=== PATIENT | male | born 1960 | race Caucasian/White ===

== ENCOUNTER 2018-05-05 08:41 | Emergency (ER) | payer OTHER ==
--- NOTE | 2018-05-05 10:38 | EDM.PDOC ---
ED HPI GENERAL MEDICAL PROBLEM - General Chief Complaint: General Stated Complaint: Post operative scrotal swelling. Time Seen by Provider: 05/05/18 08:50 Source of Information: Reports: Patient History Limitations: Reports: No Limitations - History of Present Illness INITIAL COMMENTS - FREE TEXT/NARRATIVE: Patient is a 57 year old man who had bilateral inguinal hernia repair on April in [place], [place]. He has a lot of bruising in his abdomen and scrotal area with no pain but his surgeon wanted some lab work and for him to be seen to make sure that he did not have something going on post surgically that may need to be addressed. No fever or chills and no dysuria or other complaints. 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 [Unable to Verify Home Med List] 05/05/18 [History] Past Medical History Cardiovascular History: Reports: Hypertension Gastrointestinal History: Reports: Other (See Below) Other Gastrointestinal History: Hernia - Past Surgical History GI Surgical History: Reports: Hernia, Abdominal Social & Family History - Tobacco Use Smoking Status *Q: Never Smoker - Recreational Drug Use Recreational Drug Use: No ED ROS GENERAL - Review of Systems Review Of Systems: See Below Constitutional: Reports: No Symptoms HEENT: Reports: No Symptoms Respiratory: Reports: No Symptoms Cardiovascular: Reports: No Symptoms Endocrine: Reports: No Symptoms GI/Abdominal: Reports: Other (Bruising post surgery.) : Reports: Other (Scrotal swelling and bruising.) Musculoskeletal: Reports: No Symptoms Skin: Reports: Bruising (Over lower abdomen) Neurological: Reports: No Symptoms Psychiatric: Reports: No Symptoms Hematologic/Lymphatic: Reports: No Symptoms Immunologic: Reports: No Symptoms ED EXAM, GENERAL - Physical Exam Exam: See Below Exam Limited By: No Limitations General Appearance: Alert, WD/WN, No Apparent Distress Eye Exam: Bilateral Eye: EOMI, Normal Fundi, Normal Inspection, PERRL Ears: Normal External Exam, Normal Canal, Hearing Grossly Normal, Normal TMs Ear Exam: Bilateral Ear: Auricle Normal, Canal Normal, TM normal Nose: Normal Inspection, Normal Mucosa, No Blood Throat/Mouth: Normal Inspection, Normal Lips, Normal Teeth, Normal Gums, Normal Oropharynx, Normal Voice, No Airway Compromise Head: Atraumatic, Normocephalic Neck: Normal Inspection, Supple, Non-Tender, Full Range of Motion Respiratory/Chest: No Respiratory Distress, Lungs Clear, Normal Breath Sounds, No Accessory Muscle Use, Chest Non-Tender Cardiovascular: Normal Peripheral Pulses, Regular Rate, Rhythm, No Edema, No Gallop, No JVD, No Murmur, No Rub GI/Abdominal: Soft, Non-Tender, No Organomegaly, Other (Bruising over the lower abdomen post bilateral inguinal hernia repair.) (Male) Exam: Hernia (Status Post bilateral inguinal hernia repair.), Scrotal Swelling (Bilateral hydrocele can be transilluminated.) Extremities: Normal Inspection, Normal Range of Motion, Non-Tender, Normal Capillary Refill, No Pedal Edema Neurological: Alert, Oriented, CN II-XII Intact, Normal Cognition, Normal Gait, Normal Reflexes, No Motor/Sensory Deficits Psychiatric: Normal Affect, Normal Mood Skin Exam: Ecchymosis (Lower abdomen) Lymphatic: No Adenopathy Course - Vital Signs Text/Narrative:: Uneventful ED course. He did very well and was pain free throughout the ED course. He had normal labs and he will follow up early next week with his surgeon in [place], [place]. Recheck here if any problems arise before then. Last Recorded V/S: Last Vital Signs Temp 36.9 C 05/05/18 09:00 Pulse 60 05/05/18 09:00 Resp 18 05/05/18 09:00 BP 127/75 05/05/18 09:00 Pulse Ox 98 05/05/18 09:00 - Orders/Labs/Meds Labs: Laboratory Tests 05/05/18 05/05/18 05/05/18 Range/Units 09:45 09:45 09:45 WBC 9.7 (4.0-11.0) K/uL RBC 3.97 L (4.50-6.50) M/uL Hgb 12.8 L (13.0-18.0) g/dL Hct 37.7 L (40.0-54.0) % MCV 95 (76-96) fL MCH 32.2 H (27.0-32.0) pg MCHC 34.0 (31.0-35.0) g/dL RDW 11.9 (11.0-16.0) % Plt Count 256 (150-400) K/uL MPV 9.7 (6.0-10.0) fL Neut % (Auto) 66.4 (45.0-70.0) % Lymph % (Auto) 18.9 L (20.0-40.0) % Swain % (Auto) 11.5 H (3.0-10.0) % Eos % (Auto) 2.9 (1.0-5.0) % Baso % (Auto) 0.3 (0.0-0.5) % Neut # (Auto) 6.44 (2.00-7.50) K/uL Lymph # (Auto) 1.83 (1.50-4.00) K/uL Swain # (Auto) 1.12 H (0.20-0.80) K/uL Eos # (Auto) 0.28 (0.04-0.40) K/uL Baso # (Auto) 0.03 (0.02-0.10) K/uL PT 9.4 (9.0-11.5) sec INR 0.9 L (1.0-3.5) APTT 23.9 L (24.4-33.2) SECONDS Sodium 141 (136-145) mmol/L Potassium 4.5 (3.5-5.1) mmol/L Chloride 107 (98-107) mmol/L Carbon Dioxide 28.0 (21.0-32.0) mmol/L Anion Gap 10.5 (5.0-15.0) mmol/L BUN 21 (8-26) mg/dL Creatinine 1.14 (0.70-1.30) mg/dL Est Cr Clr Drug Dosing TNP Estimated GFR (MDRD) > 60 (>60) MLS/MIN BUN/Creatinine Ratio 18.4 (6-25) Glucose 100 (74-100) mg/dL Calcium 8.7 (8.5-10.1) mg/dL Total Bilirubin 1.2 H (0.0-1.0) mg/dL AST 26 (15-37) U/L ALT 36 (12-78) U/L Alkaline Phosphatase 84 (46-116) U/L Total Protein 6.7 (6.4-8.2) g/dL Albumin 3.3 L (3.4-5.0) g/dL Globulin 3.4 (2.2-4.2) g/dL Albumin/Globulin Ratio 1.0 (0.8-2.0) Departure - Departure Time of Disposition: 10:45 Disposition: Home, Self-Care 01 Condition: Good Clinical Impression: Hydrocele in adult, Inguinal hernia bilateral, non-recurrent - Discharge Information Referrals: PCP,None [Primary Care Provider] - Forms: ED Department Discharge Additional Instructions: Keep your appointment for Monday that you have with your provider. Continue to ice testicles intermittently during the day. May continue with Ibuprofen for pain and swelling. Take it easy and no sexual intercourse.
== END 2018-05-05 10:28 | disposition home or self-care (01) ==
LOC: LB.ED 08:41
DX: N43.3 Hydrocele, unspecified (principal); K40.20 Bilateral inguinal hernia, without obstruction or gangrene, not specified as recurrent
CPT/HCPCS: 36415; 80053; 85025; 85610; 85730; 99283